=== PATIENT | female | born 1960 | race Asian ===

== ENCOUNTER 2018-09-28 11:57 | Emergency (ER) | payer OTHER ==
[~2018-09-28] VITALS: Ht 162.6 cm; Wt 59.1 kg
[2018-09-28] MEDS ORDERED: LOSA25TA16 PO (12:04)
[2018-09-28] MEDS ORDERED: SIMV-259 PO (12:04)
[2018-09-28] MEDS ORDERED: METF-960 PO (12:04)
[2018-09-28] MEDS ORDERED: ASPI81 PO (12:04)
[2018-09-28 12:14] LABS: GLUCOSE,POINT OF CARE 227 MG/DL (70-110)
[2018-09-28 13:08] LABS: APPEARANCE,URINE CLOUDY (CLEAR); BILIRUBIN,URINE NEGATIVE (NEGATIVE); GLUCOSE, URINE (UA) 100 mg/dL (NEGATIVE); KETONES,URINE NEGATIVE (NEGATIVE); LEUKOCYTE ESTERASE ,URINE MODERATE (NEGATIVE); NITRATE,URINE NEGATIVE (NEGATIVE); OCCULT BLOOD,URINE LARGE (NEGATIVE); PROTEIN,URINE TRACE (NEGATIVE); UROBILINOGEN,URINE 0.2 mg/dL (<=1.0)
[2018-09-28 13:19] LABS: BACTERIA,URINE None Seen /HPF (None Seen); RBC,URINE >100 /HPF (0-2); SQUAMOUS EPITHELIAL CELL,UR Few /LPF (None Seen)
[2018-09-28 14:16] VITALS: BP 141/85
== END 2018-09-28 14:38 | disposition home or self-care (01) ==
LOC: EMS 12:00
DX: N39.0 Urinary tract infection, site not specified (principal); I10 Essential (primary) hypertension; E78.00 Pure hypercholesterolemia, unspecified; E11.9 Type 2 diabetes mellitus without complications; F17.210 Nicotine dependence, cigarettes, uncomplicated; Z79.4 Long term (current) use of insulin; Z79.82 Long term (current) use of aspirin
CPT/HCPCS: 87086; 99406